=== PATIENT | male | born 1945 | race American Indian/Alaskan Native ===

== ENCOUNTER 2016-07-27 18:52 | Emergency (ER) | payer MEDICARE, BC ==
[2016-07-27] MEDS ORDERED: DiphenhydrAMINE 50 mg/ml Inj IVP STA (19:46)
--- NOTE | 2016-07-27 19:46 | C.PDOC ---
History Of Present Illness Patient presents to the ER with a complaint of swelling of the lips since this afternoon. Patient states he sprayed himself with a new AXE body spray. Patient is able to speak in complete sentences and can tolerate his own secretions. Patient is not wheezing or drooling and denies any fever, nausea, or vomiting. Time Seen by Provider: 07/27/16 19:46 Chief Complaint (Nursing): Allergic Reaction History Per: Patient History/Exam Limitations: no limitations Onset/Duration Of Symptoms: Hrs (Since noon) Current Symptoms Are (Timing): Still Present Possible Cause: Other (AXE body spray) Associated Symptoms: Swelling (Lips) Severity: None Pain Scale Rating Of: 0 Past Medical History Reviewed: Historical Data, Nursing Documentation, Vital Signs Vital Signs: Last Vital Signs Temp 98.9 F 07/27/16 21:29 Pulse 74 07/27/16 21:29 Resp 16 07/27/16 21:29 BP 122/76 07/27/16 21:29 Pulse Ox 97 07/27/16 21:29 - Medical History PMH: HTN Surgical History: CABG (x3) Family History: States: No Known Family Hx - Social History Hx Alcohol Use: No Hx Substance Use: No Review Of Systems Constitutional: Negative for: Fever, Chills Respiratory: Negative for: Cough, Shortness of Breath Gastrointestinal: Negative for: Nausea, Vomiting Skin: Positive for: Other (Swelling of the lips) Physical Exam - Physical Exam Appears: Well, Non-toxic, No Acute Distress Skin: Warm, Dry, No Rash Head: Swelling (Minimal lower facial swelling) Oral Mucosa: Moist, No Drooling Lips: Swelling (Edema) Throat: Other (Oropharynx clear) Chest: Symmetrical Cardiovascular: Rhythm Regular Respiratory: No Rales, No Rhonchi, No Wheezing Gastrointestinal/Abdominal: Soft, No Tenderness Neurological/Psych: Oriented x3, Normal Speech, Normal Cognition ED Course And Treatment O2 Sat by Pulse Oximetry: 98 (Room air) Pulse Ox Interpretation: Normal Progress Note: Pepcid IVP, Benadryl PO, solu-medrol IVP administered. Reevaluation Time: 22:20 Reassessment Condition: Improved Critical Care Time - Critical Care Note Total Time (in mins): 30 Documented critical care: time excludes all time spent performing seperately billable procedures. Medical Decision Making Medical Decision Making: Upon provider reevaluation patient is feeling better, is medically stable, and requires no further treatment in the ED at this time. Patient will be discharged home with Rx forPrednisone, epipen, benadryl, pepcid and claritin . Counseling was provided and all questions were answered regarding diagnosis and need for follow up with Dr Gonsalez. There is agreement to discharge plan. Return if symptoms persist or worsen. Disposition Counseled Patient/Family Regarding: Studies Performed, Diagnosis, Need For Followup, Rx Given - Disposition Referrals: Clarence Gonsalez Jr., MD [Medical Doctor] - Disposition: HOME/ ROUTINE Disposition Time: 19:46 Condition: FAIR Additional Instructions: Please return if symptoms recur. Also use Benadryl, Pepcid and Claritin Prescriptions: Prednisone [Deltasone] 20 mg PO DAILY #5 tablet Epinephrine [Epipen] 0.3 mg IJ ONCE PRN #1 [email or web address] PRN Reason: Anaphylaxis Instructions: Angioedema (ED) - Clinical Impression Clinical Impression: Angio-edema - Scribe Statement The provider has reviewed the documentation as recorded by the Scribantione Puga All medical record entries made by the Brooklynnibantione were at my direction and personally dictated by me. I have reviewed the chart and agree that the record accurately reflects my personal performance of the history, physical exam, medical decision making, and the department course for this patient. I have also personally directed, reviewed, and agree with the discharge instructions and disposition.
[2016-07-27] MEDS ORDERED: DiphenhydrAMINE 50 mg/ml Inj ONE (19:49)
[2016-07-27 21:29] VITALS: BP 122/76; PULSE 74; RESP 16; TEMP 98.9
[2016-07-27 22:23] VITALS: O2SAT 98
== END 2016-07-27 22:30 | disposition home or self-care (01) ==
LOC: C.ER 18:52
DX: T78.3XXA Angioneurotic edema, initial encounter (principal)
CPT/HCPCS: 96374; 96375; 99284; J1200; J2930